=== PATIENT | male | born 2000 | race Caucasian/White ===

== ENCOUNTER → 2022-05-26 | Day surgery (SDC) | payer BC ==
[~2022-05-26] MED LIST: TRICOR145 MG PO
[2022-05-26 11:00] VITALS: BP 102/55
== END | disposition home or self-care (01) ==
LOC: OR 07:23
PROVIDERS: ATTEND Otolaryngology Otolaryngology/Facial Plastic Surgery
DX: K13.0 Diseases of lips (principal); K13.79 Other lesions of oral mucosa; E78.5 Hyperlipidemia, unspecified; E66.9 Obesity, unspecified; Z79.899 Other long term (current) drug therapy
CPT/HCPCS: 88304